=== PATIENT | female | born 1955 | race Caucasian/White ===

== ENCOUNTER 2025-02-09 06:19 | Day surgery (SDC) | payer OTHER, SELFPAY ==
[2025-02-09 13:13] VITALS: BMI 55.1
[2025-02-09 13:18] VITALS: BMI 55.1
[2025-02-09 13:19] VITALS: BP 174/116
[2025-02-09 13:20] VITALS: BP 159/104
[2025-02-09 15:20] VITALS: BP 147/86
[2025-02-09 15:30] VITALS: BP 163/93
[2025-02-09 15:45] VITALS: BP 169/98
== END 2025-02-09 16:00 | disposition home or self-care (01) ==
LOC: SDS 06:19
PROVIDERS: ATTENDING PHYSICIAN Internal Medicine Gastroenterology
DX: Z12.11 Encounter for screening for malignant neoplasm of colon (principal); R19.5 Other fecal abnormalities; K57.30 Diverticulosis of large intestine without perforation or abscess without bleeding; K64.0 First degree hemorrhoids; K62.89 Other specified diseases of anus and rectum; D12.3 Benign neoplasm of transverse colon; D12.5 Benign neoplasm of sigmoid colon; K63.5 Polyp of colon
CPT/HCPCS: 45385; 45380; 88305